=== PATIENT | female | born 1990 | race Two or more races ===

== ENCOUNTER 2022-07-14 19:25 | Emergency (ER) | payer OTHER ==
[~2022-07-14] VITALS: Ht 160 cm; Wt 77.1 kg
== END 2022-07-14 21:58 | disposition home or self-care (01) ==
LOC: ER 19:25
DX: S91.342A Puncture wound with foreign body, left foot, initial encounter (principal); W45.8XXA Other foreign body or object entering through skin, initial encounter; Y93.9 Activity, unspecified; Y92.832 Beach as the place of occurrence of the external cause